=== PATIENT | male | born 1950 | race Caucasian/White ===

== ENCOUNTER → 2017-06-22 10:37 | Outpatient (CLI) | payer MEDICARE, OTHER, SELFPAY ==
[2017-06-22 10:47] LABS: Microscopic, Urine URINE MICROSCOPIC (MICROSCOPIC)
[2017-06-22 11:07] LABS: Appearance,Urine Clear (Clear); Color,Urine Yellow (Yellow); PH,Urine 5.5 (5.0-8.5); Specific Gravity, Urine > 1.030 (1.005-1.030)
[2017-06-22 11:10] LABS: Bilirubin,Urine Negative (Negative); Blood, Urine Negative (Negative); Glucose,Urine (UA) Negative (Negative); Ketones,Urine Negative (Negative); Leukocyte Esterase,Urine Negative (Negative); Nitrate,Urine Negative (Negative); Protein,Urine Negative (Negative); Urobilinogen,Urine 0.2 EU/dl (0.2)
[2017-06-22 11:13] LABS: Bacteria,Urine Trace /lpf; Squamous Epithelial Cell,Urine Occasional #/hpf (0-5); WBC,Urine Occasional #/hpf (0-3)
[2017-06-22 12:05] LABS: Anion Gap 13.4 mEq/L (5-15); Blood Urea Nitrogen 14 mg/dL (7-18); Calcium 8.3 mg/dL (8.5-10.1); Carbon Dioxide 24 mmol/L (21.0-32.0); Chloride 107 mmol/L (98-107); Creatinine,Serum 1.25 mg/dL (0.70-1.30); Estimated Glomerular Filt Rate 58 ml/min (>60); GFR (African American) 70 ML/MIN (>60); Glucose 197 mg/dL (74-106); Phosphorous 3.3 mg/dL (2.4-4.9); Potassium 4.4 mmoL/L (3.5-5.1); Sodium 140 mmol/L (136-145)
== END ==
PROVIDERS: PCP Family Medicine
DX: E55.9 Vitamin D deficiency, unspecified (principal)
CPT/HCPCS: 36415; 80069; 81001

== ENCOUNTER → 2017-12-10 10:43 | Outpatient (CLI) | payer MEDICARE, SELFPAY ==
[2017-12-10 13:25] LABS: Creatinine,Urine Random 230 mg/dL (20-320); Total Protein,Urine Random 25.7 mg/dL (0.0-11.9)
[2017-12-11 11:43] LABS: Vitamin D 25 Hydroxy 48.6 ng/mL (30.0-100.0)
== END ==
PROVIDERS: Visit Provider Internal Medicine Nephrology
DX: N18.3 Chronic kidney disease, stage 3 (moderate) (principal)
CPT/HCPCS: 36415; 82570; 82652; 84155

== ENCOUNTER → 2018-07-01 10:34 | Outpatient (CLI) | payer MEDICARE, OTHER, SELFPAY ==
--- NOTE | 2018-07-01 10:43 | XR_ITS ---
XR KUB HISTORY: ITS.REASON: RT FLANK PAIN ORDERING PHYSICIAN: Yolis Marcelino PATIENT AGE: 67 years COMPARISON: 08/04/2016 FINDINGS: The bowel gas pattern is unremarkable. No obvious obstruction.. No abnormal calcifications are evident. No obvious renal or ureteral calculi.. No acute bony anomalies evident. There is a 12 mm calcific density in the right pelvic region consistent with a phlebolith unchanged from a prior CT scan of 08/04/2016. Prostate seed implants are present IMPRESSION: No acute finding
--- NOTE | 2018-07-01 10:43 | XR_ITS ---
XR ribs LT min 3V w CXR1V HISTORY: Left upper rib pain ITS.REASON: LT RIB PAIN ORDERING PHYSICIAN: Yolis Marcelino PATIENT AGE: 67 years Comparison: None FINDINGS: A frontal view of the chest shows no acute finding. Multiple views of the Left ribs were obtained. No fracture or dislocation. No lytic or blastic change. IMPRESSION: Negative RIBS. If pain persists, consider follow-up exam in 7-[address] with 3-D reformats.
== END ==
PROVIDERS: PCP Nurse Practitioner Family; Visit Provider Nurse Practitioner Family
DX: R07.81 Pleurodynia (principal); R10.9 Unspecified abdominal pain
CPT/HCPCS: 71101; 74018

== ENCOUNTER 2018-09-27 12:06 | Outpatient (CLI) | payer MEDICARE, OTHER, SELFPAY ==
[2018-09-27 12:14] VITALS: BMI 24.1
[2018-09-27 12:36] LABS: Basophils % 0.1 % (0.1-2.0); Eosinophils % 0.3 % (0.1-12.0); Hematocrit 53.3 % (42.0-52.0); Hemoglobin 17.9 g/dL (14.1-18.0); Lymphocytes # 0.1 K/mm3 (0.7-4.5); Lymphocytes % 1.6 % (10-50); Mean Corpuscular HGB Conc 33.7 g/dL (31.8-35.4); Mean Corpuscular Hemoglobin 30.5 pg (27.0-31.2); Mean Corpuscular Volume 90.5 fl (80-94); Monocytes # 0.7 K/mm3 (0.1-1.0); Monocytes % 9.2 % (1.7-9.3); Neutrophils # 6.4 K/mm3 (1.8-7.8); Neutrophils % 88.9 % (37.0-80.0); Platelet Count 103 K/mm3 (142-424); Red Blood Count 5.89 M/mm3 (4.60-6.20); Red Cell Distribution Width 13.5 % (11.5-17.5); White Blood Count 7.2 K/mm3 (4.8-10.8)
[2018-09-27 12:41] LABS: MANUAL DIFFERENTIAL MANUAL DIFFERENTIAL (MANUAL DIFF)
[2018-09-27 12:49] LABS: Anion Gap 20.7 mEq/L (5-15); Blood Urea Nitrogen 35 mg/dL (7-18); Calcium 7.5 mg/dL (8.5-10.1); Carbon Dioxide 22 mmol/L (21.0-32.0); Chloride 94 mmol/L (98-107); Creatinine Clearance Estimated 50 mL/min (50-200); Creatinine,Serum 1.41 mg/dL (0.70-1.30); Estimated Glomerular Filt Rate 50 ml/min (>60); GFR (African American) 61 ML/MIN (>60); Potassium 5.7 mmoL/L (3.5-5.1); Sodium 131 mmol/L (136-145)
[2018-09-27 12:50] VITALS: BP 95/61; PULSE 88; RESP 20; TEMP 36.9; O2SAT 95
[2018-09-27 12:56] LABS: Lymphocytes % 3 % (10-50); Neutrophils % 95 % (42-76); Total Cells Counted 100
[2018-09-27 12:57] LABS: Platelet Estimate Slight Decrease; RBC Morphology Normal
[2018-09-27 13:01] LABS: Glucose 508 mg/dL (74-106)
[2018-09-27 13:30] VITALS: BP 116/78; PULSE 68; RESP 20; TEMP 36.9; O2SAT 95
[2018-09-27 14:00] VITALS: BP 118/74; PULSE 68; RESP 20; TEMP 36.9; O2SAT 95
[2018-09-27 15:00] VITALS: BP 102/62; PULSE 68; RESP 20; TEMP 36.9; O2SAT 95
[2018-09-27 15:30] VITALS: BP 99/65; PULSE 68; RESP 20; TEMP 37.1; O2SAT 96
[2018-09-27 15:40] VITALS: BP 103/74; PULSE 68; RESP 20; TEMP 36.9; O2SAT 95
[2018-09-28 13:32] LABS: POC Glucose,Bedside 479 (70-110)
== END 2018-09-27 15:40 | disposition home or self-care (01) ==
PROVIDERS: PCP Family Medicine; Visit Provider Family Medicine
DX: E86.0 Dehydration (principal); R73.9 Hyperglycemia, unspecified
CPT/HCPCS: 80048; 82962; 85007; 85025; 96360; 96361

== ENCOUNTER 2018-10-19 10:58 | Outpatient (CLI) | payer MEDICARE, OTHER, SELFPAY ==
[2018-10-19 11:30] VITALS: BP 88/66; PULSE 87; RESP 20; TEMP 36.9; O2SAT 95
[2018-10-19 12:30] VITALS: BP 102/66; PULSE 88; RESP 20; TEMP 36.9; O2SAT 95
[2018-10-19 13:30] VITALS: BP 102/88; PULSE 68; RESP 20; TEMP 36.9; O2SAT 95
== END 2018-10-19 13:30 | disposition home or self-care (01) ==
PROVIDERS: PCP Family Medicine; Visit Provider Nurse Practitioner
DX: E86.0 Dehydration (principal); C61 Malignant neoplasm of prostate
CPT/HCPCS: 96360; 96361